=== PATIENT | female | born 1955 | race Hispanic/Latino ===

== ENCOUNTER 2020-03-17 10:30 | Outpatient (CLI) | payer MEDICARE ==
--- NOTE | 2020-03-17 12:52 | MRI ---
MRI LUMBAR SPINE WITHOUT CONTRAST: INDICATION: Lumbar radiculopathy. Low back pain. FINDINGS: Lumbar vertebrae maintain normal height and alignment. Vertebral body signal is preserved. Degenerative disk and end plate changes are seen at multiple levels. Loss of disk space at all level s of the lumbar spine. Degenerative end plate changes are prominent at L3-4. L1-2: Broad-based disk bulge flattens the thecal sac. Mild to moderate facet hypertrophy. No signi ficant central canal or foraminal stenosis. At L2-3: Broad-based disk bulge flattens the thecal sac. Moderate facet hypertrophy. Mild central canal stenosis. Mild bilateral foraminal encroachment secondary to broad-based disk bulge extending into the foraminal bones. At L3-4: Diffuse disk bulge flattens the thecal sac. Moderate facet and ligamentous hypertrophy. M oderate central canal stenosis. Left foraminal stenosis secondary to asymmetric disk bulge extending into foramina and also extending laterally on the left. This appears to displace the exiting left L 3 nerve root. Moderate central canal stenosis. At L4-5: Diffuse disk bulge flattens the thecal sac. Facet hypertrophy. Mild central canal stenosi s. There is asymmetric disk-osteophyte complex projecting into the right foramina displacing the exiting right L4 nerve root. L5-S1: Annular fissure with small central protrusion indenting the anterior thecal sac. No signific ant central canal stenosis. Mild bilateral foraminal narrowing secondary to disk bulge and facet hyp ertrophy. IMPRESSION: Multilevel degenerative disk changes. Disk bulge at all levels with degrees of central canal and for aminal stenosis as described above. POS: [facility]
== END 2020-03-17 10:31 | disposition home or self-care (01) ==
LOC: TBSIIMAG 10:30
PROVIDERS: ATTEND Specialist
DX: M51.17 Intervertebral disc disorders with radiculopathy, lumbosacral region (principal); M51.36 Other intervertebral disc degeneration, lumbar region; M51.26 Other intervertebral disc displacement, lumbar region; M48.07 Spinal stenosis, lumbosacral region; M48.061 Spinal stenosis, lumbar region without neurogenic claudication
CPT/HCPCS: 72148